=== PATIENT | female | born 1945 ===

== ENCOUNTER 2017-12-27 06:12 | Emergency (ER) | payer OTHER ==
[2017-12-27 06:13] VITALS: BMI 20.5
[2017-12-27 06:32] VITALS: TEMP 97.6
[2017-12-27 07:08] LABS: BASO % 0.5 % (0.0-2.0); EOS # 0.1 K/uL (0.0-0.7); EOS % 1.3 % (0.0-4.0); HEMOGLOBIN 13.5 g/dL (11.0-16.0); LYMPH # 1.5 K/uL (1.0-4.3); LYMPH % 37.2 % (20.0-40.0); MEAN CELL VOLUME 85.1 fL (81.0-99.0); MEAN CORPUSCULAR HEMOGLOBIN 29.1 pg (27.0-31.0); MEAN CORPUSCULAR HGB CONC 34.2 g/dL (33.0-37.0); MEAN PLATELET VOLUME 8.5 fL (7.2-11.7); MONO # 0.3 K/uL (0.0-0.8); MONO % 7.4 % (0.0-10.0); NEUT # 2.2 K/uL (1.8-7.0); NEUT % 53.6 % (50.0-75.0); NRBC % 0.1 % (0.0-2.0); RBC 4.63 Mil/uL (3.80-5.20); RED CELL DISTRIBUTION WIDTH 14.1 % (11.5-14.5); WHITE BLOOD COUNT 4.2 K/uL (4.8-10.8)
[2017-12-27 07:15] LABS: PROTHROMBIN TIME 11.2 SECONDS (9.7-12.2)
[2017-12-27 07:23] LABS: ALB/GLOB RATIO 1.7 (1.0-2.1); ALBUMIN 4.4 g/dL (3.5-5.0); ALT/SGPT 44 U/L (9-52); AST/SGOT 45 U/L (14-36); BLOOD UREA NITROGEN 18 mg/dL (7-17); GFR NON-AFRICAN AMERICAN > 60
--- NOTE | 2017-12-27 07:30 | C.PDOC ---
History Of Present Illness 72-year-old female, presents to the emergency department with complaints of one episode of dizziness yesterday, that is described as "room-spinning" Patient has a Hx of vertigo, and states episode is similar to previous episodes,. Patient states she took Meclizine with relief. Patient notes she intermittently had a few episodes today, prompting visit. Patient denies any nausea/vomiting, fevers, chills, chest pain, shortness of breath, visual changes or any other associated symptoms. No dizziness at this time. No other complaints. Time Seen by Provider: 12/27/17 07:03 Chief Complaint (Nursing): Dizziness/Lightheaded History Per: Patient History/Exam Limitations: no limitations Past Medical History Reviewed: Historical Data, Nursing Documentation, Vital Signs Vital Signs: Last Vital Signs Temp 97.6 F 12/27/17 06:27 Pulse 84 12/27/17 06:27 Resp 14 12/27/17 06:27 BP 148/68 12/27/17 06:27 Pulse Ox 98 12/27/17 06:27 - Medical History PMH: Anxiety, Arthritis, HTN, Hypercholesterolemia (CONTROLLED WITH DIET PER PT), Hyperlipidemia Denies: Chronic Kidney Disease Surgical History: Appendectomy - [facility] Procedures ENDOSC POLYPECTOMY OF LG INTEST (07/30/14) RESECTION OF BILATERAL FALLOPIAN TUBES, OPEN APPROACH (12/10/14) RESECTION OF BILATERAL OVARIES, OPEN APPROACH (12/10/14) RESECTION OF SIGMOID COLON, OPEN APPROACH (12/10/14) Family History: States: No Known Family Hx - Social History Hx Alcohol Use: No Hx Substance Use: No - Immunization History Hx Tetanus Toxoid Vaccination: No Hx Influenza Vaccination: No Hx Pneumococcal Vaccination: No Review Of Systems Constitutional: Negative for: Fever Cardiovascular: Negative for: Chest Pain Respiratory: Negative for: Shortness of Breath Gastrointestinal: Negative for: Nausea, Vomiting Musculoskeletal: Negative for: Neck Pain, Back Pain Skin: Negative for: Rash Neurological: Positive for: Dizziness. Negative for: Weakness, Numbness Physical Exam - Physical Exam Appears: Non-toxic, No Acute Distress Skin: Warm, Dry, No Rash Head: Atraumatic, Normacephalic Eye(s): bilateral: Normal Inspection, PERRL, EOMI Nose: Normal Oral Mucosa: Moist Lips: Normal Appearing Neck: Normal ROM Chest: Symmetrical Cardiovascular: Rhythm Regular, No Murmur Respiratory: Normal Breath Sounds, No Accessory Muscle Use Gastrointestinal/Abdominal: Soft, No Tenderness Extremity: Normal ROM Neurological/Psych: Oriented x3, Normal Speech Gait: Steady ED Course And Treatment - Laboratory Results Result Diagrams: 12/27/17 06:57 12/27/17 06:57 ECG: Interpreted By Me, Viewed By Me ECG Rhythm: Sinus Rhythm Interpretation Of ECG: left axis deviation. no acute ST/T wave changes Rate From EC O2 Sat by Pulse Oximetry: 98 Pulse Ox Interpretation: Normal (RA) Progress Note: EKG, Bloodwork and UA ordered and reviewed. Disposition Counseled Patient/Family Regarding: Studies Performed, Diagnosis, Need For Followup, Rx Given - Disposition Referrals: [facility] [Outside] Disposition: HOME/ ROUTINE Disposition Time: 07:40 Condition: STABLE Additional Instructions: FOLLOW UP WITH YOUR DOCTOR IN 1-2 DAYS USE MEDICATION NEEDED FOR VERTIGO RETURN TO EMERGENCY ROOM IF SYMPTOMS WORSEN SEGUIR CON HERRERA MDICO EN 1-2 BEACH UTILICE MEDICAMENTOS MARIANO SE NECESITE PARA VERTIGO VUELVA A LA DANIELLA DE EMERGENCIA SI LOS SNTOMAS SE ASCENCIO PROBLEMAS Prescriptions: Meclizine [Antivert] 12.5 mg PO BID PRN #20 tab PRN Reason: Dizziness Instructions: Vertigo (a Type of Dizziness) (DC) Forms: [employer] (Qatari), Work Excuse Print Language: MALTESE - POA Present On Arrival: None - Clinical Impression Clinical Impression: Vertigo - Scribe Statement The provider has reviewed the documentation as recorded by the Scribe (Alexandro alatorre) Provider Attestation: All medical record entries made by the Scribe were at my direction and personally dictated by me. I have reviewed the chart and agree that the record accurately reflects my personal performance of the history, physical exam, medical decision making, and the department course for this patient. I have also personally directed, reviewed, and agree with the discharge instructions and disposition.
[2017-12-27 07:53] LABS: URINE BILIRUBIN NEGATIVE (NEGATIVE); URINE BLOOD NEGATIVE (NEGATIVE); URINE CLARITY Clear (Clear); URINE COLOR Colorless (YELLOW); URINE GLUCOSE (UA) NORMAL (Normal); URINE LEUKOCYTE ESTERASE NEG Leu/uL (Negative); URINE PROTEIN NEGATIVE (NEGATIVE); URINE UROBILINOGEN NORMAL mg/dL (0.2-1.0)
[2017-12-27 08:14] VITALS: BP 139/82; PULSE 68; RESP 18
[2017-12-27 08:28] VITALS: O2SAT 98
--- NOTE | 2017-12-28 19:46 | CARD ---
APPROVED REPORT Date of service: 12/27/2017 EKG Measurement Heart [id number] <Conclusion> Normal sinus rhythm Left axis deviation Abnormal ECG
== END 2017-12-27 08:20 | disposition home or self-care (01) ==
LOC: C.ER 06:12
DX: R42 Dizziness and giddiness (principal); I10 Essential (primary) hypertension; E78.00 Pure hypercholesterolemia, unspecified; F41.9 Anxiety disorder, unspecified

== ENCOUNTER 2018-06-25 08:01 | Emergency (ER) | payer OTHER ==
[2018-06-25 08:01] VITALS: BMI 20.5
[2018-06-25 08:10] VITALS: O2SAT 100
[2018-06-25] MEDS ORDERED: Sodium Chloride 0.9% 1,000 ML IV ONE (08:17)
--- NOTE | 2018-06-25 08:35 | C.PDOC ---
History Of Present Illness Patient is a 72 yr old female who has a history of vertigo who presents to the ED c/o nausea and dizziness on and off for 1 week. The symptoms started up again yesterday. The patient had some left over medication for her vertigo ( meclizine 12.5 mg tabs) and she took it this morning and now her symptoms are starting to fade/subside. No vomiting. She describes the dizziness as a spinning sensation. No chest pain, no fever, and no SOB. Information translated with RN Sunitha Brenner. PMD: Dr. Lorenzo / Time Seen by Provider: 06/25/18 08:16 Chief Complaint (Nursing): GI Problem History Per: Patient Onset/Duration Of Symptoms: Days Current Symptoms Are (Timing): Still Present Severity: Mild Pain Scale Rating Of: 0 Past Medical History Reviewed: Historical Data, Nursing Documentation, Vital Signs Vital Signs: Last Vital Signs Temp 98.1 F 06/25/18 08:05 Pulse 80 06/25/18 08:05 Resp 18 06/25/18 08:05 BP 164/80 H 06/25/18 08:05 Pulse Ox 100 06/25/18 08:05 Primary Care Provider: Karely Carballo - Medical History PMH: Anxiety, Arthritis, HTN, Hypercholesterolemia (CONTROLLED WITH DIET PER PT), Hyperlipidemia Surgical History: Appendectomy - [facility] Procedures ENDOSC POLYPECTOMY OF LG INTEST (07/30/14) RESECTION OF BILATERAL FALLOPIAN TUBES, OPEN APPROACH (12/10/14) RESECTION OF BILATERAL OVARIES, OPEN APPROACH (12/10/14) RESECTION OF SIGMOID COLON, OPEN APPROACH (12/10/14) Family History: States: Other Other Family History: Mother with "liver issues". - Social History Hx Alcohol Use: No Hx Substance Use: No - Immunization History Hx Tetanus Toxoid Vaccination: No Hx Influenza Vaccination: Yes Hx Pneumococcal Vaccination: No Review Of Systems Except As Marked, All Systems Reviewed And Found Negative. Cardiovascular: Negative for: Chest Pain Respiratory: Negative for: Shortness of Breath Gastrointestinal: Positive for: Nausea. Negative for: Vomiting Neurological: Positive for: Dizziness. Negative for: Weakness Physical Exam - Physical Exam Appears: Well, Non-toxic, No Acute Distress (Well appearing) Skin: Normal Color, Other (bonilla / good color) Head: Atraumatic Eye(s): bilateral: Normal Inspection, PERRL, EOMI (no nystagmus) Ear(s): Bilateral: Normal Nose: Normal Oral Mucosa: Moist Tongue: Normal Appearing Lips: Normal Appearing Teeth: Normal Dentition Throat: Normal Neck: Normal ROM Lymphatic: Deferred Chest: Symmetrical Cardiovascular: Rhythm Regular, No Murmur Respiratory: Normal Breath Sounds, No Rales, No Rhonchi, No Wheezing Gastrointestinal/Abdominal: Normal Exam, Bowel Sounds, Soft, No Tenderness Rectal: Deferred Extremity: Normal ROM Neurological/Psych: Oriented x3, Normal Speech, Normal Cognition, Normal Motor, Normal Sensation, Other (nonfocal) ED Course And Treatment - Laboratory Results Result Diagrams: 06/25/18 09:12 06/25/18 09:12 ECG: Interpreted By Me ECG Rhythm: Sinus Rhythm O2 Sat by Pulse Oximetry: 100 Interpretation Of Abnormal: Left axis deviation, rate 69 bpm, no ST elevation, no evidence of ischemia Medical Decision Making Medical Decision Making: Initial Impression: Vertigo (pt states this seems like prior episodes of vertigo) Initial Plan: Will give more meclizine (pt already took 12.5 mg PO at home.....will give another 12.5 mg) Will also check labs & EKG Note: old records reviewed--does have hx of vertigo Progress note(s): 10AM - Pt feels better. Labs with no concerning findings. Will d/c home and increase dose of meclizine (currently only takes 12.5 mg). / Disposition Counseled Patient/Family Regarding: Studies Performed, Diagnosis, Need For Followup, Rx Given - Disposition Referrals: Karely Carballo [Staff Provider] - Disposition: HOME/ ROUTINE Disposition Time: 10:01 Condition: IMPROVED Additional Instructions: Martell, thank you for letting us take care of you today. Return to the ER if your symptoms worsen, or if any problems. Take the medication listed below as prescribed. Follow up with Dr. Carballo this week for a re-evaluation. Prescriptions: Meclizine [Antivert] 1 tab PO Q6 PRN #30 tab PRN Reason: Dizziness Instructions: Vertigo (a Type of Dizziness) (DC) Forms: [employer] (Slovenian) Print Language: KOREAN - POA Present On Arrival: None - Clinical Impression Clinical Impression: Vertigo
[2018-06-25] MEDS ORDERED: Sodium Chloride 0.9% 1,000 ML ONE (08:45)
[2018-06-25 09:15] LABS: BASO % 0.1 % (0.0-2.0); EOS % 0.1 % (0.0-4.0); HEMOGLOBIN 13.8 g/dL (11.0-16.0); LYMPH # 1.1 K/uL (1.0-4.3); LYMPH % 16.1 % (20.0-40.0); MEAN CORPUSCULAR HEMOGLOBIN 30.5 pg (27.0-31.0); MEAN CORPUSCULAR HGB CONC 34.6 g/dL (33.0-37.0); MEAN PLATELET VOLUME 8.1 fL (7.2-11.7); MONO # 0.2 K/uL (0.0-0.8); MONO % 3.4 % (0.0-10.0); NEUT # 5.4 K/uL (1.8-7.0); NEUT % 80.3 % (50.0-75.0); RBC 4.53 Mil/uL (3.80-5.20); RED CELL DISTRIBUTION WIDTH 12.9 % (11.5-14.5)
[2018-06-25 09:17] LABS: MEAN CELL VOLUME 88.2 fL (81.0-99.0); WHITE BLOOD COUNT 6.8 K/uL (4.8-10.8)
[2018-06-25 09:26] LABS: ALB/GLOB RATIO 1.8 (1.0-2.1); ALBUMIN 4.6 g/dL (3.5-5.0); ALT/SGPT 17 U/L (9-52); AST/SGOT 23 U/L (14-36); BLOOD UREA NITROGEN 15 mg/dL (7-17); CALCIUM 8.9 mg/dl (8.6-10.4); GFR NON-AFRICAN AMERICAN > 60; LIPASE 66 U/L (23-300)
[2018-06-25 09:33] LABS: URINE BILIRUBIN NEGATIVE (NEGATIVE); URINE BLOOD NEGATIVE (NEGATIVE); URINE CLARITY Clear (Clear); URINE COLOR Yellow (YELLOW); URINE GLUCOSE (UA) NORMAL (Normal); URINE LEUKOCYTE ESTERASE NEG Leu/uL (Negative); URINE PROTEIN NEGATIVE (NEGATIVE); URINE UROBILINOGEN NORMAL mg/dL (0.2-1.0)
[2018-06-25 10:17] VITALS: BP 129/56; PULSE 66; RESP 15; TEMP 97.9
--- NOTE | 2018-06-26 21:55 | CARD ---
APPROVED REPORT Date of service: 06/25/2018 EKG Measurement Heart [id number] <Conclusion> Normal sinus rhythm Left axis deviation Abnormal ECG
== END 2018-06-25 10:18 | disposition home or self-care (01) ==
LOC: C.ER 08:01
DX: R42 Dizziness and giddiness (principal); I10 Essential (primary) hypertension; E78.00 Pure hypercholesterolemia, unspecified; F41.9 Anxiety disorder, unspecified
CPT/HCPCS: 80053; 81001; 82948; 83690; 85025; 93005; 99285; J7030